=== PATIENT | female | born 1995 | race Caucasian/White ===

== ENCOUNTER 2018-04-15 15:36 | Outpatient (CLI) | payer OTHER | END 2018-04-15 15:37 | disposition home or self-care (01) | LOC: DTY/OP 15:36 | PROVIDERS: ATTEND Family Medicine | DX: E11.9 Type 2 diabetes mellitus without complications (principal); E66.9 Obesity, unspecified; E78.5 Hyperlipidemia, unspecified | CPT/HCPCS: 97802 ==